=== PATIENT | female | born 1960 | race African-American/Black ===

== ENCOUNTER 2016-10-11 12:23 | Emergency (ER) | payer OTHER ==
[~2016-10-11] VITALS: Ht 167.6 cm; Wt 80.0 kg
[~2016-10-11 12:23] MED LIST: AMLO10 PO; ASPI325T PO; CEPH-460 PO; METF500T PO; ZOCO40TA PO
[2016-10-11 12:25] VITALS: BP 175/94; PULSE 90; RESP 20; TEMP 97.8; O2SAT 96
--- NOTE | 2016-10-11 13:07 | PD ---
HPI Chief Complaint: Fall Time Seen by Provider: 13:06 Travel History International Travel<30 days: No Contact w/Intl Traveler<30days: No Traveled to known affect area: No [facility] Past Medical History Hx Anticoagulant Therapy: Yes Autoimmune Disease: No Heart Rhythm Problems: No Cancer: No Cardiovascular Problems: Yes (HTN) High Cholesterol: Yes Congestive Heart Failure: No Cerebrovascular Accident: Yes Diabetes: Yes Diminished Hearing: No Endocrine: Yes Genitourinary: No Hypertension: Yes Immune Disorder: No Musculoskeletal: No Neurologic: Yes (h/o cva) Psychiatric: No (PT DENIES ANY PREVIOUS PSYCHIATRIC CARE) Reproductive: No Respiratory: No Menopausal: Yes : 5 Para: 5 Past Surgical History Other Surgery: No Social History Alcohol Use: No Tobacco Use: No Substance Use: No Allergies-Medications (Allergen,Severity, Reaction): Coded Allergies: No Known Allergies (Verified , 10/11/16) Reported Meds & Prescriptions Reported Meds & Active Scripts Active Keflex (Cephalexin) 500 Mg Cap 500 Mg PO Q8H Begin 24 hours prior to surgery and take for three days. Reported Norvasc (Amlodipine Besylate) 10 Mg Tab 10 Mg PO DAILY Zocor (Simvastatin) 40 Mg Tab 40 Mg PO DAILY Metformin (Metformin HCl) 500 Mg Tab 500 Mg PO DAILY With a meal Aspirin 325 Mg Tab 325 Mg PO DAILY Data Data Last Documented VS Vital Signs Date Time Temp Pulse Resp B/P Pulse Ox O2 Delivery O2 Flow Rate FiO2 10/11/16 12:25 97.8 90 20 175/94 96 Room Air Nereyda Georges Oct 11, 2016 13:07
--- NOTE | 2016-10-11 13:40 | PD ---
HPI Chief Complaint: Fall Time Seen by Provider: 13:25 Travel History International Travel<30 days: No Contact w/Intl Traveler<30days: No Traveled to known affect area: No History of Present Illness HPI 56-year-old female with history of CVA with right upper and lower extremity weakness presents for evaluation of right foot weakness. The patient reports that 3 days ago she slid out of a garden chair. She was helped back up by the neighbor. She reports that since then she has felt like her right foot is weaker than her baseline. 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 She denies any other injuries. She reports that she landed directly on her foot. She did not hit her head. She denies any headache , neck or back pain, numbness or tingling in the lower extremities, abdominal pain, bowel or bladder incontinence, saddle anesthesia. She has no other complaints. PFSH Past Medical History Hx Anticoagulant Therapy: Yes Autoimmune Disease: No Heart Rhythm Problems: No Cancer: No Cardiovascular Problems: Yes (HTN) High Cholesterol: Yes Congestive Heart Failure: No Cerebrovascular Accident: Yes Diabetes: Yes Diminished Hearing: No Endocrine: Yes Genitourinary: No Hypertension: Yes Immune Disorder: No Musculoskeletal: No Neurologic: Yes (h/o cva) Psychiatric: No (PT DENIES ANY PREVIOUS PSYCHIATRIC CARE) Reproductive: No Respiratory: No Menopausal: Yes : 5 Para: 5 Past Surgical History Other Surgery: No Social History Alcohol Use: No Tobacco Use: No Substance Use: No Allergies-Medications (Allergen,Severity, Reaction): Coded Allergies: No Known Allergies (Verified , 10/11/16) Reported Meds & Prescriptions Reported Meds & Active Scripts Active Reported Zetia (Ezetimibe) 10 Mg Tab 10 Mg PO DAILY Tradjenta (Linagliptin) 5 Mg Tab 5 Mg PO DAILY Fenofibrate 145 Mg Tab 145 Mg PO DAILY Losartan (Losartan Potassium) 100 Mg Tab 100 Mg PO DAILY Atorvastatin (Atorvastatin Calcium) 40 Mg Tab 40 Mg PO HS Norvasc (Amlodipine Besylate) 10 Mg Tab 10 Mg PO DAILY Metformin (Metformin HCl) 500 Mg Tab 500 Mg PO BID With a meal Aspirin 325 Mg Tab 325 Mg PO DAILY Review of Systems ROS Limitations: Poor Historian Except as stated in HPI: all other systems reviewed are Neg Physical Exam Exam Limitations: Poor Historian Narrative GENERAL: Well-developed well-nourished female in no acute distress SKIN: Warm and dry. HEAD: Atraumatic. Normocephalic. EYES: Pupils equal and round. No scleral icterus. No injection or drainage. ENT: No nasal bleeding or discharge. Mucous membranes pink and moist. NECK: Trachea midline. No JVD. CARDIOVASCULAR: Regular rate and rhythm. No murmur appreciated. RESPIRATORY: No accessory muscle use. Clear to auscultation. Breath sounds equal bilaterally. GASTROINTESTINAL: Abdomen soft, non-tender, nondistended. Hepatic and splenic margins not palpable. MUSCULOSKELETAL: No obvious deformities. The patient has no tenderness to palpation of the neck or back or arms or legs. Her right arm is held in flexion and internal rotation chronically. NEUROLOGICAL: Awake and alert. No obvious cranial nerve deficits. Motor grossly within normal limits. Normal speech. She has 2 out of 5 muscle strength in the right arm and right leg with contracturing with passive ROM of rue and rle and 5 out of 5 muscle strength left arm and left leg. There is no obvious foot drop in the right leg. The patient has normal sensation to light touch and sharp touch in the lower extremities. She has no clonus, negative Babinski, 1+ Achilles and patellar reflex bilaterally. 2+ dorsalis pedis and posterior tibial pulses. PSYCHIATRIC: Appropriate mood and affect; insight and judgment normal. Data Data Last Documented VS Vital Signs Date Time Temp Pulse Resp B/P Pulse Ox O2 Delivery O2 Flow Rate FiO2 10/11/16 15:00 81 18 172/71 96 Room Air 10/11/16 12:25 97.8 Orders Foot, Complete ([id number]) (10/11/16 ) Complete Blood Count With Diff (10/11/16 13:32) Basic Metabolic Panel (Bmp) (10/11/16 13:32) Act Partial Throm Time (Ptt) (10/11/16 13:32) Prothrombin Time / Inr (Pt) (10/11/16 13:32) Mri L Spine W/O Contrast (10/11/16 ) Labs Laboratory Tests Test 10/11/16 13:45 White Blood Count 8.4 TH/MM3 Red Blood Count 5.00 MIL/MM3 Hemoglobin 13.6 GM/DL Hematocrit 41.0 % Mean Corpuscular Volume 81.9 FL Mean Corpuscular Hemoglobin 27.2 PG Mean Corpuscular Hemoglobin 33.2 % Concent Red Cell Distribution Width 13.0 % Platelet Count 313 TH/MM3 Mean Platelet Volume 8.9 FL Neutrophils (%) (Auto) 58.6 % Lymphocytes (%) (Auto) 34.1 % Monocytes (%) (Auto) 6.7 % Eosinophils (%) (Auto) 0.2 % Basophils (%) (Auto) 0.4 % Neutrophils # (Auto) 4.9 TH/MM3 Lymphocytes # (Auto) 2.9 TH/MM3 Monocytes # (Auto) 0.6 TH/MM3 Eosinophils # (Auto) 0.0 TH/MM3 Basophils # (Auto) 0.0 TH/MM3 CBC Comment DIFF FINAL Differential Comment Prothrombin Time 10.9 SEC Prothromb Time International 1.0 RATIO Ratio Activated Partial 25.2 SEC Thromboplast Time Sodium Level 143 MEQ/L Potassium Level 3.6 MEQ/L Chloride Level 107 MEQ/L Carbon Dioxide Level 28.1 MEQ/L Anion Gap 8 MEQ/L Blood Urea Nitrogen 16 MG/DL Creatinine 1.11 MG/DL Estimat Glomerular Filtration 62 ML/MIN Rate Random Glucose 107 MG/DL Calcium Level 9.2 MG/DL [facility] Medical Decision Making Medical Screen Exam Complete: Yes Emergency Medical Condition: Yes Medical Record Reviewed: Yes Interpretation(s) Foot x-ray reveals no acute abnormalities Lumbar spine MRI CONCLUSION: 1. Grade I anterior spondylolisthesis of L5 on S1 secondary to facet hypertrophy. There is some increased signal seen within facet joints on the left likely suggesting some active granulation change and edema. 2. There is facet hypertrophy throughout the rest of the lumbar spine. Differential Diagnosis Spinal cord injury, baseline weakness from CVA, foot contusion, foot strain, peroneal nerve palsy Narrative Course This is a 56-year-old female with history of right-sided weakness from previous CVA who presents feeling like her right foot is weaker than her baseline after a mechanical fall 3 days ago in which she landed directly on her right foot. On examination she has 2 out of 5 muscle strength in the right lower extremities and right upper extremity. She has no "foot drop" to suggest a peroneal nerve palsy. She has no symptoms of cauda equina. She has no sensation changes in the lower extremities. The plan is to get an x-ray of the right foot as well as an MRI of the lumbar spine as well as baseline lab work. The lumbar spine MRI is reassuring with no acute process, right foot x-rays negative. The patient's symptoms appear to be her baseline weakness in the right upper and lower extremity with contractures of both extremities on exam. The patient apparently has a roommate who helps her get around at home and she also uses a cane and walker for these purposes as well. This point in time I discussed the options with the patient including being admitted for observation versus being discharged home with outpatient follow-up and she would prefer to be discharged home at this time. This appears reasonable. She is stable for discharge. Diagnosis Primary Impression: Weakness of right foot Additional Impression: History of CVA (cerebrovascular accident) Additional Instructions: As discussed, follow-up in the next few days with your primary care physician. You would benefit from outpatient physical therapy. Return for any acutely new or worsening symptoms. Med/Other Pt SpecificInfo: No Change to Meds Disposition: 01 DISCHARGE HOME Condition: Stable Jamar Massey Oct 11, 2016 13:40
[2016-10-11 14:02] LABS: AUTOMATED NEUTROPHIL # 4.9 TH/MM3 (1.8-7.7); BASOPHIL % 0.4 % (0.0-2.0); EOSINOPHIL % 0.2 % (0.0-4.0); HEMO FLAGS DIFF FINAL; LYMPH % 34.1 % (9.0-44.0); LYMPHOCYTE # 2.9 TH/MM3 (1.0-4.8); MEAN CELL VOLUME 81.9 FL (80.0-100.0); MEAN CORPUSCULAR HEMOGLOBIN 27.2 PG (27.0-34.0); MEAN CORPUSCULAR HGB CONC 33.2 % (32.0-36.0); MONO % 6.7 % (0.0-8.0); NEUT % 58.6 % (16.0-70.0); PLATELET COUNT 313 TH/MM3 (150-450); WHITE BLOOD COUNT 8.4 TH/MM3 (4.0-11.0)
[2016-10-11 14:12] LABS: APTT (PATIENT) 25.2 SEC (24.3-30.1); PROTHROMBIN TIME - PATIENT 10.9 SEC (9.8-11.6)
[2016-10-11 14:22] LABS: BICARBONATE 28.1 MEQ/L (21.0-32.0); POTASSIUM 3.6 MEQ/L (3.5-5.1)
--- NOTE | 2016-10-11 14:33 | RADRPT ---
EXAM DATE/TIME: 10/11/2016 14:00 [facility] COMPARISON: No previous studies available for comparison. INDICATIONS : Pain from fall. MEDICAL HISTORY : None. SURGICAL HISTORY : None. ENCOUNTER: Initial ACUITY: 2 days PAIN SCORE: 5/10 LOCATION: Right foot. FINDINGS: Three view examination of the right foot demonstrates no soft tissue swelling, dislocation, or fractu re. The tarsal bones appear intact. The interphalangeal and metatarsophalangeal joints are intact. The calcaneus is intact. Bony mineralization is normal. CONCLUSION: No acute disease. Nir Lara MD on October 11, 2016 at 14:31 Board Certified Radiologist. This report was verified electronically.
[2016-10-11 15:00] VITALS: BP 172/71; PULSE 81; RESP 18; O2SAT 96
[2016-10-11] MEDS ORDERED: FENO145T2 PO (15:10)
[2016-10-11] MEDS ORDERED: TRAD5TAB PO (15:10)
[2016-10-11] MEDS ORDERED: ATOR40TA16 PO (15:10)
[2016-10-11] MEDS ORDERED: LOSA100T PO (15:10)
--- NOTE | 2016-10-11 15:13 | RADRPT ---
EXAM DATE/TIME: 10/11/2016 14:14 [facility] COMPARISON: No previous studies available for comparison. INDICATIONS : Right foot weakness. MEDICAL HISTORY : Hypertension. Cerebrovascular disease. Diabetes mellitus type 2. CVA SURGICAL HISTORY : None. ENCOUNTER: Initial ACUITY: 1 day PAIN SCORE: 0/10 LOCATION: [facility] TECHNIQUE: Multiplanar multisequence MRI of the lumbar spine was performed without contrast. FINDINGS: The most caudal appearing lumbar vertebra is numbered as L5. VERTEBRAE: The lumbar vertebral bodies are normal in height. There is grade I anterior spondylolisthesis of L5 on S1. CONUS: Normal level and configuration. T12-L1: The thecal sac has a normal diameter. No evidence of disc bulge or protrusion. The neural foramina are patent bilaterally. L1-L2: The thecal sac has a normal diameter. No evidence of disc bulge or protrusion. The neural foramina are patent bilaterally. There is mild facet hypertrophy. L2-L3: The thecal sac has a normal diameter. No evidence of disc bulge or protrusion. The neural foramina are patent bilaterally. There is mild facet hypertrophy. L3-L4: The thecal sac has a normal diameter. No evidence of disc bulge or protrusion. The neural foramina are patent bilaterally. There is mild facet hypertrophy. L4-L5: The thecal sac has a normal diameter. No evidence of disc bulge or protrusion. The neural foramina are patent bilaterally. There is mild to moderate facet hypertrophy. L5-S1: Again noted is the grade I anterior spondylolisthesis of L4 on L5. The disc maintains its alignment with the superior aspect of the sacrum creating a bulge-like configuration. There is severe facet hy pertrophy. There is minimal narrowing of the left neural foramina. The right neural foramina appear s patent. There does appear to be some edema within the facet region on the left side seen on the sa gittal stir images. CONCLUSION: 1. Grade I anterior spondylolisthesis of L5 on S1 secondary to facet hypertrophy. There is some in creased signal seen within facet joints on the left likely suggesting some active granulation change and edema. 2. There is facet hypertrophy throughout the rest of the lumbar spine. Nir Lara MD on October 11, 2016 at 14:51 Board Certified Radiologist. This report was verified electronically.
[2016-10-11] MEDS ORDERED: ZETI10TA5 PO (15:14)
== END 2016-10-11 15:44 | disposition home or self-care (01) ==
LOC: NEPC 12:23
DX: R53.1 Weakness (principal); Z86.73 Personal history of transient ischemic attack (TIA), and cerebral infarction without residual deficits; I10 Essential (primary) hypertension; E11.9 Type 2 diabetes mellitus without complications; Z79.01 Long term (current) use of anticoagulants
CPT/HCPCS: 72148; 73630; 80048; 85025; 85610; 85730